=== PATIENT | female | born 1945 ===

== ENCOUNTER 2017-12-11 11:59 | Emergency (ER) | payer MEDICARE ==
[2017-12-11 12:32] VITALS: BP 135/78
--- NOTE | 2017-12-11 12:56 | UC ---
[facility] Trauma HPI - HPI Summary HPI Summary: fell from a ladder and knocked her over onto the wheel of a tractor. She has rib pain and tenderness and has pain with cough and sneezing. She has been using ice packs and aspercream. No cough or fever. 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 Onset/Duration: Sudden Onset, Lasting Weeks - two weeks since the injury., Still Present Onset Of Pain: Immediate Severity Initially: Moderate Severity Currently: Moderate Pain Intensity: 8 Mechanism Of Injury: Blunt Trauma Aggravating Factor(s): Deep Breathing, Cough Alleviating factor(s): Rest Associated Signs And Symptoms: Negative: Hematuria, Abdominal Pain, Fever, Nausea, Vomiting - Allergies/Home Medications Allergies/Adverse Reactions: Allergies Allergy/AdvReac Type Severity Reaction Status Date / Time No Known Allergies Allergy Verified 12/11/17 12:32 Home Medications: Home Medications Aspirin [Adult Aspirin Regimen] 81 mg PO 12/11/17 [History] Atorvastatin* [Lipitor*] 80 mg PO DAILY 12/11/17 [History Confirmed 12/11/17] Halobetasol Propionate 15 gm TP 12/11/17 [History] Losartan/Hydrochlorothiazide [Losartan Potassium/Hydroc 50-12.5 mg] 1 tab PO 12/23 [History] Nitroglycerin [Nitrostat] 0.3 mg SL 12/11/17 [History] Omeprazole CAP* [Prilosec CAP* 20 MG] 20 mg PO DAILY 12/11/17 [History Confirmed 12/11/17] amLODIPine TAB* [Norvasc 5 mg TAB*] 5 mg PO DAILY 12/11/17 [History Confirmed ] metFORMIN* [Glucophage 500 MG TAB *] 500 mg PO BID 12/11/17 [History Confirmed 12/11/17] PMH/Surg Hx/FS Hx/Imm Hx Previously Healthy: No - obesity. - Surgical History Surgical History: None - Family History Known Family History: Positive: Other - No related fh. - Social History Lives: With Family Alcohol Use: Occasionally Substance Use Type: None Smoking Status (MU): Never Smoked Tobacco Review of Systems Cardiovascular: Chest Pain All Other Systems Reviewed And Are Negative: Yes Physical Exam Triage Information Reviewed: Yes Appearance: Well-Appearing, Pain Distress - obvious pain with deep breaths otherwise comfortable appearing. Vital Signs: Initial Vital Signs Temp 98.6 F 12/11/17 12:23 Pulse 75 12/11/17 12:23 Resp 18 12/11/17 12:23 BP 135/78 12/11/17 12:23 Pulse Ox 99 12/11/17 12:23 Vital Signs Reviewed: Yes Eyes: Positive: Conjunctiva Clear ENT: Positive: Normal ENT inspection Neck: Positive: Supple, Nontender, No Lymphadenopathy. Negative: Nuchal Rigidity Respiratory: Positive: Normal breath sounds, No respiratory distress, No accessory muscle use. Negative: Respiratory distress, Decreased breath sounds, Accessory muscle use, Crackles, Rhonchi Cardiovascular: Positive: RRR, No Murmur, Pulses Normal Abdomen Description: Positive: Nontender, No Organomegaly, Soft. Negative: CVA Tenderness (R), CVA Tenderness (L), Distended, Guarding Musculoskeletal Exam: Other - No spinal percussion tenderness. There is bruising and tenderness along the 8th rib laterallly. Neurological: Positive: Alert, Muscle Tone Normal. Negative: Fatigued Psychological: Positive: Age Appropriate Behavior Skin: Positive: Other - bruising/ Diagnostics - Radiology No standard instances Xray Interpretation: Positive (See Comments) - two rib fractures. Radiology Interpretation Completed By: ED Physician [place] Trauma Course/Dx - Course Course Of Treatment: two rib fractures. We described excersizes for lung expansion and they will return for any signs of pneumonia and we described these in detail. - Differential Dx/Diagnosis Provider Diagnoses: rib fractures. left rib injury. Discharge - Sign-Out/Discharge Documenting (check all that apply): Discharge/Admit/Transfer - Discharge Plan Condition: Good Disposition: HOME Prescriptions: oxyCODONE/Acetamin 5/325 MG* [Percocet 5/325 TAB*] 1 tab PO Q6H PRN #30 tab MDD 4 PRN Reason: Pain Patient Education Materials: Rib Fracture (ED) Referrals: Lesa Briggs [Primary Care Provider] - 2 Days Additional Instructions: Return for any worsening symptoms or signs of pneumonia as we discussed. - Billing Disposition and Condition Condition: GOOD Disposition: Home
--- NOTE | 2017-12-11 13:33 | RAD ---
HISTORY: Left rib pain after fall COMPARISONS: None VIEWS: 5, Frontal view of the chest with frontal and oblique views of the left hemithorax FINDINGS: There are displaced fractures of the left fourth and fifth ribs. There is no appreciable pneumothorax. IMPRESSION: DISPLACED FRACTURES OF THE LEFT FOURTH AND FIFTH RIBS, WITHOUT APPRECIABLE PNEUMOTHORAX.
== END 2017-12-11 13:38 | disposition home or self-care (01) ==
LOC: UCCORT 11:59
DX: S22.42XA Multiple fractures of ribs, left side, initial encounter for closed fracture (principal); W03.XXXA Other fall on same level due to collision with another person, initial encounter; Y93.89 Activity, other specified; Y92.9 Unspecified place or not applicable
CPT/HCPCS: 99212; G0463